=== PATIENT | male | born 1965 | race Caucasian/White ===

== ENCOUNTER → 2022-06-21 10:16 | Outpatient (BNVA) | payer MEDICARE, MEDICAID, SELFPAY | PROVIDERS: Family Provider Family Medicine; Referring Provider Nurse Practitioner Family; Visit Provider Student in an Organized Health Care Education/Training Program | DX: M65.341 Trigger finger, right ring finger (principal); M65.331 Trigger finger, right middle finger | CPT/HCPCS: 20600; 73130; 99204; J3301; J3490 ==

== ENCOUNTER 2022-09-13 08:49 | Emergency (ER) | payer MEDICARE, MEDICAID, SELFPAY ==
[2022-09-13 08:55] VITALS: BP 165/89; PULSE 60; RESP 18; TEMP 36.6; O2SAT 97; BMI 29.8
--- NOTE | 2022-09-13 09:05 | CT_ITS ---
WS: [id number] CT ABDOMEN AND PELVIS NONCONTRAST HISTORY: Abdominal pain TECHNIQUE: Imaging performed through the abdomen and pelvis. Coronal and sagittal reformats are submi tted. All CT scans at [facility] use at least one of these dose optimization techniques: auto mated exposure control; mA and/or kV adjustment per patient size (includes targeted exams where dose is matched to clinical indication); or iterative reconstruction. DLP: 1075.43 mGy.cm COMPARISON: None available. Lower thorax: No pneumonia. Normal size heart. Small hiatal hernia. Liver: Normal size liver. No mass or bile duct dilatation. Gallbladder: Prior cholecystectomy. Pancreas: Normal size and attenuation. Normal pancreatic duct. No pancreatitis or mass. Spleen: Normal. Adrenal glands: Normal. No mass. Right kidney: 6 mm nonobstructing calcification mid kidney. No mass or hydronephrosis. No ureteral en largement. Left kidney: Normal size kidney with no mass or hydronephrosis. Aorta: Mild atherosclerosis abdominal aorta with no aneurysm. No free fluid, intraperitoneal air or significant lymphadenopathy. GI tract: Minimally distended stomach. No small bowel obstruction. Appendix is normal. Tortuosity wit h numerous diverticula in the sigmoid colon. There is very minimal colonic wall stranding involving t he sigmoid which may indicate very early acute diverticulitis. No abscess or free air. Abdominal wall: Small umbilical hernia contains fat only. Pelvis: Normal. Osseous structures: Unremarkable. CT/CT abdomen pelvis wo con [id number] IMPRESSION: 1. No renal obstruction or hydronephrosis. 2. Nonobstructing 6 mm calcification RIGHT renal pelvis. 3. Normal appendix. 4. Moderate sigmoid diverticulosis. Minimal pericolonic stranding may represen t early developing sigmoid diverticulitis. There is no abscess or free air.
--- NOTE | 2022-09-13 09:05 | XR_ITS ---
WS: [id number] PORTABLE CHEST HISTORY: chest pain COMPARISON: 06/04/2018 Lungs are clear and well expanded. No pleural effusion or pneumothorax. Cardiac size: Normal. Mediastinum/Aorta: Normal mediastinum. No osseous abnormality seen. XR/XR chest 1V portable [id number] IMPRESSION: Unremarkable portable chest.
--- NOTE | 2022-09-13 09:10 | ECG_ITS ---
[facility] Test Date: 2022-09-13 Pat Name: Haris Chen Department: Room: Gender: Male Plc Engineer: : 1965 Requested By: Angelito Aden Order Number: [id number] Alisia MD: Jung Kruse M.D. Measurements Intervals [place] Rate: 62 P: 6 WI: 174 QRS: 11 QRSD: 92 T: 18 QT: 411 QTc: 420 Interpretive Statements SINUS RHYTHM No previous ECG available for comparison Electronically Signed On 09-13-2022 11:09:27 SPORTS ATHLETIC TRAINER by Jung Kruse M.D. [id number]
[2022-09-13 09:19] VITALS: BP 165/89; PULSE 60; RESP 18; TEMP 36.6; O2SAT 97
[2022-09-13 09:37] LABS: Troponin(5th) Baseline 9 ng/L (0-15)
--- NOTE | 2022-09-13 10:28 | ED_ITS ---
HPI - Chest Pain General: Chief Complaint: Chest Pain Stated Complaint: Possible TIA Time Seen by Provider: 09/13/22 08:50 Source: patient Mode of arrival: EMS History of Present Illness: 57-year-old male presents emergency room with complaint of dizziness and some anxiety this morning and were concerned he may have a TIA. Furthermore he is complaining some left-sided chest pressure that was transient with a time he arrived that are resolved. He was nauseous in route they gave him 5 mg of Compazine. He also some mild abdominal discomfort although is not very focal about it. He has no radiation of any chest pain no particular shortness of breath this all began while at rest most of it seems to resolve spontaneously but he still has a bit of abdominal discomfort he has no focal neurologic deficits. MD complaint: chest pain Onset (ago): hour(s) Timing of current episode: constant Onset: during rest Pain location: substernal Pain radiation: none Severity: mild Quality: heaviness Relieving factors: nothing Exacerbating factors: nothing Associated symptoms: Reports abdominal pain and nausea; Deny diaphoresis, dyspnea, fever(s), leg edema, palpitations, sense of impending doom, syncope or vomiting Treatment prior to arrival: other (Compazine) Review of Systems Const: Reports: fatigue; Denies: fever(s), chills, malaise or diaphoresis ENMT: Denies: throat pain, ear or mastoid pain, nasal discharge or nasal congestion Card: Reports: chest pain; Denies: palpitations, irregular heart rhythm, edema, swelling of feet/ankles, syncope or dyspnea on exertion Resp: Denies: dyspnea, productive cough, non-productive cough or wheezing GI: Reports: abdominal pain, nausea and GI cramping; Denies: vomiting : Denies: flank pain, difficulty urinating, dysuria, urinary frequency or urinary urgency Skin/Breast: Denies: rash or pruritus PFS ED PFSH: Medical History Trigger finger, right middle finger Trigger finger, right ring finger Social History Smoking and tobacco status: never smoked Physical Exam Const: COMMON NORMALS: no acute distress GENERAL APPEARANCE: cooperative and comfortable ORIENTATION/CONSCIOUSNESS: Yes awake, Yes oriented to person, Yes oriented to place and Yes oriented to time HENMT: COMMON NORMALS: normocephalic, atraumatic, hearing grossly normal bilaterally, external ears normal, EAC's normal, TM's normal bilaterally, Normal nasal mucous membranes and turbinates present, moist oral mucous membranes and oropharynx normal HEAD & SCALP: normocephalic and atraumatic NOSE: Normal nasal mucous membranes and turbinates present EXTERNAL EAR: Yes external ears normal EXTERNAL AUDITORY CANAL: EAC's normal TYMPANIC MEMBRANE: TM's normal bilaterally Eye: COMMON NORMALS: Equal, round and reactive pupils present, EOMs intact bilaterally, conjunctivae normal and no scleral icterus CONJUNCTIVA: Yes conjunctivae normal PUPIL: Yes Equal, round and reactive pupils present Neck/C-Spine: COMMON NORMALS: full ROM, no lymphadenopathy, supple and no JVD Resp: COMMON NORMALS: normal respiratory effort, No retractions, No use of accessory muscles and clear to auscultation bilaterally AUSCULTATION: clear to auscultation bilaterally Cardio: COMMON NORMALS: no JVD, regular rate, regular rhythm and No murmurs present (Cardio) RATE: regular rate RHYTHM: regular rhythm GI: COMMON NORMALS: No hepatosplenomegaly present AUSCULTATION: Yes normoa ctive bowel sounds PALPATION: Yes Tenderness to palpation present (GI) (Periumbilical into the left lower quadrant), No Guarding due to palpation present (GI) and Yes No hepatosplenomegaly present Extremity: COMMON NORMALS: normal to inspection, capillary refill normal, no clubbing, cyanosis or edema, no calf tenderness and no pedal edema Neuro: SENSORIUM/ORIENTATION: Yes oriented to person, Yes oriented to place and Yes oriented to time Skin: COMMON NORMALS: no rashes or lesions noted GENERAL SKIN EXAM: no rashes or lesions noted Course Vital Signs: Vital signs: Vital Signs Temperature 98 F 09/13/22 12:48 Pulse Rate 56 L 09/13/22 12:48 Respiratory Rate 18 09/13/22 12:48 Blood Pressure 123/84 09/13/22 12:48 Pulse Oximetry 98 09/13/22 12:48 Oxygen Delivery Me thod 09/13/22 12:04 MDM - Chest Pain Medical Decision Making Serial enzymes and EKGs are unremarkable no acute ST changes on EKG. Neuro logically patient is fully intact CT shows moderate sigmoid diverticulitis. Given his discomfort in the abdomen I do think that is clinically relevant. We will go ahead and treat him with oral antibiotics. Asked patient start taking baby aspirin daily continue the atorvastatin follow-up with his primary care doctor return if is further problems. Case management to set up a Lexiscan sestamibi stress test at a later date. Medical Records I reviewed the patient's medical records. Lab Data I reviewed the patient's lab results. Radiology Impressions Abdomen/Pelvis CT 09/13/22 09:05 IMPRESSION: 1. No renal obstruction or hydronephrosis. 2. Nonobstructing 6 mm calcification RIGHT renal pelvis. 3. Normal appendix. 4. Moderate sigmoid diverticulosis. Minimal pericolonic stranding may represent early developing sigmoid diverticulitis. There is no abscess or free air. Chest X-Ray 09/13/22 09:05 IMPRESSION: Unremarkable portable chest. Laboratory Results Troponin T Baseline 9 ng/L (0-15) 09/13/22 08:55 Troponin T 120 Minute 8.65 ng/L (0-15) 09/13/22 11:07 Delta Troponin T -0.35 ABS# (0-10) L 09/13/22 11:07 Discharge Plan Discharge Patient Disposition: Home Clinical Impression: Diverticulitis, Atypical chest pain, Nystagmus, Dizziness Condition: Stable Prescriptions: New Cipro 500 mg tablet 500 mg PO Q12H Qty: 20 0RF metronidazole 500 mg tablet 500 mg PO BID 10 Days Qty: 20 0RF promethazine 25 mg tablet 25 mg PO Q6H PRN (Reason: nausea and vomiting) Qty: 20 0RF No Action atorvastatin 80 mg tablet 80 mg PO QPM pantoprazole 40 mg tablet,delayed release (DR/EC) 40 mg PO BID trazodone 150 mg tablet 150 mg PO BEDTIME PRN (Reason: Sleep) metformin 1,000 mg tablet 1,000 mg PO DAILY lisinopril-hydrochlorothiazide 10-12.5 mg tablet 1 tab PO DAILY albuterol sulfate 90 mcg/actuation HFA aerosol inhaler 1 puff INHALATION Q4H PRN (Reason: Shortness Of Breath Or Wheezing) fluoxetine 20 mg capsule 20 mg PO DAILY fenofibrate 160 mg tablet 160 mg PO DAILY Breo Ellipta 100-25 mcg/dose blister with device 1 inh INHALATION DAILY Farxiga 10 mg tablet 10 mg PO DAILY Discharge Orders: Discharge ED (Routine); Ordered 09/13/22 Ordered By: Angelito Stewart Referrals: Antonella Perez MD [Hospitalist] - Discharge Diet: Clear Liquid Discharge Activity: Increase activity as tolerated Patient Instructions: Opioid Safety, Pain Management Activity Restrictions/Additional Instructions: You were seen today for dizziness chest pain abdominal pain. EKG and cardiac enzymes are negative does not like chest pain you had was associated with an acute coronary event at this time. Recommend you continue to take all of your medications. CT did show some acute diverticulitis we will start you on ciprofloxacin and metronidazole for that for 10 days he can use promethazine as needed for dizziness or nausea as well. Recommend clear liquid diet for next 24 to 48 hours and advance as tolerated. Coding Level of Care Code ED Powertrain Calibration Engineer for Kayla Boone Exam Comprehensive NIH stroke score NIHSS Level Of Consciousness - 1a: 0 Level Of Consciousness Questions - 1b: Both Correct Level Of Consciousness Commands - 1c: Both Correct Best Gaze - 2: Normal Visual Huynh - 3: No Visual Loss Facial Palsy - 4: Normal Motor Arm Right - 5: No Drift Motor Arm Left - 5: No Drift Motor Leg Right - 6: No Drift Motor Leg Left - 6: No Drift Limb Ataxia - 7: Absent Sensory - 8: Normal Best Language - 9: No Aphasia Dysarthia - 10: Normal Extinction And Inattention - 11: 0 Score Total Score: 0
[2022-09-13 11:27] VITALS: BP 132/84; PULSE 58; O2SAT 98
[2022-09-13 11:28] LABS: Troponin 5 2HR 8.65 ng/L (0-15)
--- NOTE | 2022-09-13 11:28 | ECG_ITS ---
[facility] Test Date: 2022-09-13 Pat Name: Haris Chen Department: Room: Gender: Male Signal Timer: : 1965 Requested By: Angelito Aden Order Number: [id number] Alisia MD: Jung Kruse M.D. Measurements Intervals [place] Rate: 58 P: 28 [place]: 174 QRS: 17 QRSD: 93 T: 29 QT: 424 QTc: 420 Interpretive Statements SINUS BRADYCARDIA Compared to ECG 09/13/2022 09:10:17 Sinus rhythm no longer present Electronically Signed On 09-14-2022 11:10:34 VAN LOADER by Jung Kruse M.D. [email or web address] by [facility] hospitalauctionpointmansfield hospitalScoopler[id number]
[2022-09-13 11:57] LABS: Troponin 5 2HR Delta -0.35 ABS# (0-10)
[2022-09-13 12:04] VITALS: BP 123/84; PULSE 56; RESP 18; TEMP 36.6; O2SAT 98
[2022-09-13 12:48] VITALS: BP 123/84; PULSE 56; RESP 18; TEMP 36.6; O2SAT 98
--- NOTE | 2022-09-20 13:55 | DCPLANNER ---
Addendum entered by Jaimee Mcintosh 01/06/23 08:31: Stress test cancelled Original Note: writing manager had message to schedule an outpatient stress test for patient. writing manager faxed signed order to centralized scheduling, who will call patient with appointment information.
== END 2022-09-13 12:45 | disposition home or self-care (01) ==
PROVIDERS: Emergency Provider Family Medicine
DX: K57.92 Diverticulitis of intestine, part unspecified, without perforation or abscess without bleeding (principal); R07.89 Other chest pain; H55.00 Unspecified nystagmus; R42 Dizziness and giddiness
CPT/HCPCS: 71045; 74176; 84484; 93005; 99285

== ENCOUNTER → 2022-11-27 12:14 | Outpatient (BNVA) | payer MEDICARE, MEDICAID, SELFPAY | PROVIDERS: PCP Nurse Practitioner Family; Referring Provider Nurse Practitioner Family; Visit Provider Specialist | DX: R42 Dizziness and giddiness (principal); G43.711 Chronic migraine without aura, intractable, with status migrainosus | CPT/HCPCS: 99204 ==